=== PATIENT | female | born 1950 ===

== ENCOUNTER 2017-04-01 12:37 | Emergency (ER) | payer MEDICARE, OTHER ==
[2017-04-01 12:37] VITALS: BMI 38.0
[2017-04-01 13:14] VITALS: BP 122/82; PULSE 77; RESP 20; TEMP 99.6; O2SAT 98
--- NOTE | 2017-04-01 14:54 | C.PDOC ---
History Of Present Illness 66 y/o female presents to the ER complaining of left elbow pain which has been present for 3 days. Patient also states that she has bilateral foot pain which has been present for 1 week. Patient states that she has a history of gout and this is similar to prior exacerbations. Time Seen by Provider: 04/01/17 13:46 Chief Complaint (Nursing): Upper Extremity Problem/Injury History Per: Patient History/Exam Limitations: no limitations Onset/Duration Of Symptoms: Days Current Symptoms Are (Timing): Still Present Severity: Moderate Past Medical History Reviewed: Historical Data, Nursing Documentation, Vital Signs Vital Signs: Last Vital Signs Temp 99.6 F 04/01/17 13:11 Pulse 77 04/01/17 13:11 Resp 20 04/01/17 13:11 BP 122/82 04/01/17 13:11 Pulse Ox 98 04/01/17 17:41 - Medical History PMH: HTN Surgical History: No Surg Hx - [facility] Procedures DX ULTRASOUND-HEAD/NECK (10/08/12) INJECT/INFUSE NEC (02/16/13) OTHER PARATHYROIDECTOMY (02/10/13) PERCUTAN NEEDLE BX OF THYROID GLAND (10/08/12) Family History: States: No Known Family Hx - Social History Hx Alcohol Use: No Hx Substance Use: No - Immunization History Hx Tetanus Toxoid Vaccination: No Hx Influenza Vaccination: No Hx Pneumococcal Vaccination: No Review Of Systems Except As Marked, All Systems Reviewed And Found Negative. Musculoskeletal: Positive for: Arm Pain (left elbow pain), Foot Pain Neurological: Negative for: Weakness, Numbness Physical Exam - Physical Exam Appears: Non-toxic, No Acute Distress, Other (mild pain) Skin: Normal Color, Warm Head: Atraumatic, Normacephalic Eye(s): bilateral: Normal Inspection, PERRL Nose: Normal Oral Mucosa: Moist Neck: Supple Chest: Symmetrical Extremity: No Normal ROM (decreased ROM in left elbow due to pain), Swelling ( mild swelling in left elbow, mild swelling at the MTP joints in bilateral feet) , Other (left elbow warm to touch, no erythema in left elbow, bilateral feet warm to touch, no erythema in bilateral feet) Pulses: Left Dorsalis Pedis: Normal, Right Dorsalis Pedis: Normal Neurological/Psych: Oriented x3, Normal Speech, Normal Cognition, Normal Motor, Normal Sensation ED Course And Treatment O2 Sat by Pulse Oximetry: 98 (RA) Pulse Ox Interpretation: Normal Progress Note: Patient has gout and has been given Colocrys and Toradol. Patient given prescriptions for Colocrys and Toradol. Patient discharged and told to follow up with PCP. Disposition Counseled Patient/Family Regarding: Diagnosis, Need For Followup, Rx Given - Disposition Referrals: Paulie Pratt MD [Non-Staff] - Tarik Simpson MD [Staff Provider] - Disposition: HOME/ ROUTINE Disposition Time: 15:00 Condition: STABLE Additional Instructions: SEGUIMIENTO CON HERMAN MDICO EN 1-2 OSUNA USE MEDICAMENTOS SEGN LO INDICADO REGRESE AL ANDERSON DE EMERGENCIA SI LOS SNTOMAS EMPEORAN FOLLOW UP WITH YOUR DOCTOR IN 1-2 DAYS USE MEDICATIONS DIRECTED RETURN TO EMERGENCY ROOM IF SYMPTOMS WORSEN Prescriptions: Colchicine 0.6 mg PO BID #6 tablet Ketorolac Tromethamine [Toradol] 10 mg PO Q8 PRN #20 tab PRN Reason: PAIN Instructions: Gout (ED) Forms: [facility] (Welsh) Print Language: URDU - Clinical Impression Clinical Impression: Acute gout - Scribe Statement The provider has reviewed the documentation as recorded by the Tashaibe Anne Posada Provider Attestation: All medical record entries made by the Scribe were at my direction and personally dictated by me. I have reviewed the chart and agree that the record accurately reflects my personal performance of the history, physical exam, medical decision making, and the department course for this patient. I have also personally directed, reviewed, and agree with the discharge instructions and disposition.
== END 2017-04-01 15:44 | disposition home or self-care (01) ==
LOC: C.ER 12:37
DX: M10.9 Gout, unspecified (principal)
CPT/HCPCS: 96372; 99283; J1885

== ENCOUNTER 2017-09-06 20:08 | Emergency (ER) | payer MEDICARE, OTHER ==
[2017-09-06 20:09] VITALS: BMI 38.0
--- NOTE | 2017-09-06 20:56 | C.PDOC ---
History Of Present Illness 66 year old female with PMHx of HTN presents to the ED for evaluation of elevated BP. Patient reports she is taking carvedolol 6.25 mg PO BID, , losartan 100 mg PO QD as well as clonidine patch of 0.2 mg QWEEK on her right arm which shje replaced today at 15:00 plus a 0.1 mg clonidine patch on her left arm which she added because her BP was elevated today. Carvedolol was never increased from introductory dose. Patient denies dizziness, blurry vision , weakness, numbness, SOB, nausea, vomit. Time Seen by Provider: 09/06/17 20:44 Chief Complaint (Nursing): High Blood Pressure History Per: Patient History/Exam Limitations: no limitations Onset/Duration Of Symptoms: Days Current Symptoms Are (Timing): Still Present Associated Symptoms: Headache Exacerbating Factor(s): Pos: Recent Change In Medication Recent travel outside of the [place]: No Additional History Per: Patient Past Medical History Reviewed: Historical Data, Nursing Documentation, Vital Signs Vital Signs: Last Vital Signs Temp 98 F 09/06/17 20:36 Pulse 87 09/06/17 20:36 Resp 18 09/06/17 20:36 BP 194/106 H 09/06/17 21:15 Pulse Ox 98 09/06/17 22:09 - Medical History PMH: HTN Surgical History: No Surg Hx - [facility] Procedures DX ULTRASOUND-HEAD/NECK (10/08/12) INJECT/INFUSE NEC (02/16/13) OTHER PARATHYROIDECTOMY (02/10/13) PERCUTAN NEEDLE BX OF THYROID GLAND (10/08/12) Family History: States: Unknown Family Hx - Social History Hx Alcohol Use: No Hx Substance Use: No - Immunization History Hx Tetanus Toxoid Vaccination: No Hx Influenza Vaccination: No Hx Pneumococcal Vaccination: No Review Of Systems Constitutional: Negative for: Fever, Chills Eyes: Negative for: Vision Change Cardiovascular: Negative for: Chest Pain, Palpitations Respiratory: Negative for: Cough, Shortness of Breath Gastrointestinal: Negative for: Nausea, Vomiting Skin: Negative for: Rash Neurological: Negative for: Headache, Dizziness Physical Exam - Physical Exam Appears: Non-toxic, No Acute Distress, Other (morbidly obese) Skin: Normal Color, Warm, Dry Head: Atraumatic, Normacephalic Eye(s): bilateral: Normal Inspection Oral Mucosa: Moist Neck: Normal ROM, Supple Chest: Symmetrical Cardiovascular: Rhythm Regular Respiratory: Normal Breath Sounds, No Rales, No Rhonchi, No Wheezing Gastrointestinal/Abdominal: Soft, No Tenderness, No Guarding, No Rebound Extremity: Normal ROM, No Tenderness, No Pedal Edema, Capillary Refill (< 2 seconds) Pulses: Left Dorsalis Pedis: Normal, Right Dorsalis Pedis: Normal Neurological/Psych: Oriented x3, Normal Speech Gait: Steady ED Course And Treatment - Laboratory Results Result Diagrams: 09/06/17 20:58 09/06/17 20:58 Lab Interpretation: Normal (ua neg., trop/bnp neg.) ECG: Interpreted By Me O2 Sat by Pulse Oximetry: 98 (ON RA) Pulse Ox Interpretation: Normal - Radiology CXR: Interpreted by Me CXR Interpretation: Yes: No Acute Disease Reevaluation Time: 22:15 Reassessment Condition: Improved Medical Decision Making Medical Decision Making: Impression: elevated BP Plan: * EKG * Labs * CXR * Trandate 200 mg PO * UA poorly controlled HTN Carvedolol still at intro dose. Will double per recommendations. continue Losartan and Clonidine unchanged plan to d/c Clonidine when Carvedolol maximized. Disposition Doctor Will See Patient In The: Office Counseled Patient/Family Regarding: Studies Performed, Diagnosis - Disposition Disposition: HOME/ ROUTINE Disposition Time: 22:09 Condition: GOOD Forms: [facility] (Northern Irish) - Clinical Impression Clinical Impression: Uncontrolled hypertension - Scribe Statement The provider has reviewed the documentation as recorded by the Scribe Jordan Patterson All medical record entries made by the Scribe were at my direction and personally dictated by me. I have reviewed the chart and agree that the record accurately reflects my personal performance of the history, physical exam, medical decision making, and the department course for this patient. I have also personally directed, reviewed, and agree with the discharge instructions and disposition.
[2017-09-06 21:05] LABS: BASO % 0.6 % (0.0-2.0); EOS # 0.2 K/uL (0.0-0.7); EOS % 2.4 % (0.0-4.0); HEMOGLOBIN 14.3 g/dL (11.0-16.0); LYMPH # 2.4 K/uL (1.0-4.3); LYMPH % 35.6 % (20.0-40.0); MEAN CELL VOLUME 82.4 fL (81.0-99.0); MEAN CORPUSCULAR HEMOGLOBIN 27.4 pg (27.0-31.0); MEAN CORPUSCULAR HGB CONC 33.3 g/dL (33.0-37.0); MEAN PLATELET VOLUME 9.1 fL (7.2-11.7); MONO # 0.6 K/uL (0.0-0.8); MONO % 9.4 % (0.0-10.0); NEUT # 3.5 K/uL (1.8-7.0); NRBC % 0.4 % (0.0-2.0); RBC 5.2 Mil/uL (3.80-5.20); RED CELL DISTRIBUTION WIDTH 14.4 % (11.5-14.5); WHITE BLOOD COUNT 6.7 K/uL (4.8-10.8)
[2017-09-06 21:09] LABS: SQUAMOUS EPITHIAL 1 /hpf (0-5); URINE BILIRUBIN NEGATIVE (NEGATIVE); URINE BLOOD NEGATIVE (NEGATIVE); URINE CLARITY Clear (Clear); URINE COLOR YELLOW (YELLOW); URINE GLUCOSE (UA) NEGATIVE (Normal); URINE LEUKOCYTE ESTERASE NEGATIVE Leu/uL (Negative); URINE PROTEIN 30 mg/dL (NEGATIVE); URINE UROBILINOGEN 0.2 mg/dL (0.2-1.0)
[2017-09-06 21:16] LABS: ALB/GLOB RATIO 1.4 (1.0-2.1); ALBUMIN 4.2 g/dL (3.5-5.0); CALCIUM 9.5 mg/dl (8.6-10.4)
[2017-09-06 21:29] LABS: TROPONIN I 0.016 ng/mL (0.00-0.120)
[2017-09-06 22:48] VITALS: BP 156/93; PULSE 68; RESP 20; TEMP 98.2; O2SAT 95
--- NOTE | 2017-09-07 08:32 | RAD ---
PROCEDURE: CHEST RADIOGRAPH, 1 VIEW HISTORY: SOB COMPARISON: None available. FINDINGS: LUNGS: The lungs are well inflated and clear. PLEURA: No pneumothorax or pleural fluid seen. CARDIOVASCULAR: Normal. OSSEOUS STRUCTURES: No significant abnormalities. VISUALIZED UPPER ABDOMEN: Normal. OTHER FINDINGS: None. IMPRESSION: No active pulmonary disease.
--- NOTE | 2017-09-07 20:02 | CARD ---
APPROVED REPORT EKG Measurement Heart [id number] <Conclusion> Normal sinus rhythm Left axis deviation Left ventricular hypertrophy with QRS widening Abnormal ECG
== END 2017-09-06 23:06 | disposition home or self-care (01) ==
LOC: C.ER 20:08
DX: I10 Essential (primary) hypertension (principal)